=== PATIENT | male | born 1970 | race Two or more races ===

== ENCOUNTER 2023-06-12 14:05 | Emergency (ER) | payer OTHER ==
[2023-06-12 14:26] VITALS: BP 131/80; O2SAT 96
--- NOTE | 2023-06-12 14:45 | ED Physician Documentation ---
PD HPI UPPER EXT INJURY - Stated complaint Stated Complaint: LT HAND INJURY - Chief complaint Chief Complaint: Wound - History obtained from History obtained from: Patient - History of Present Illness Location: Left, Hand Pain level max: 3 Pain level now: 3 Improved by: Rest Worsened by: Moving Associated symptoms: No: Weakness, Numbness, Tingling, Swelling, Discolored - Additonal information Additional information: 52-year-old male presents to the emergency department with a dog bite from a chihuahua to the webspace between the left second and third digits. Unknown last tetanus shot. Nothing makes it better or worse. Review of Systems Constitutional: denies: Fever, Chills GI: denies: Vomiting, Diarrhea Skin: denies: Rash Musculoskeletal: denies: Neck pain, Back pain Neurologic: denies: Headache PD PAST MEDICAL HISTORY - Past Medical History Past Medical History: No - Past Surgical History Past Surgical History: Yes General: Cholecystectomy - Present Medications Home Medications: Ambulatory Orders Medication Instructions Recorded Confirmed Amox/Clav 875/125 [Augmentin] 1 tab PO Q12H #14 tablet 06/12/23 - Allergies Allergies/Adverse Reactions: Allergies Allergy/AdvReac Type Severity Reaction Status Date / Time No Known Drug Allergies Allergy Verified 06/12/23 14:25 - Social History Does the pt smoke?: No Smoking Status: Never smoker - Immunizations Immunizations: TDAP >10years/unknown PD ED PE NORMAL - Vitals Vital signs reviewed: Yes - General General: Alert and oriented X 3, No acute distress - HEENT HEENT: Moist mucous membranes - Neck Neck: Supple, no meningeal sign - Cardiac Cardiac: RRR - Respiratory Respiratory: No respiratory distress, Clear bilaterally - Derm Derm: Warm and dry - Extremities Extremities: Other (L hand - Superficial laceration to the webspace of the left hand in between the second and third digits. Not bleeding. Not deep. Not gaping. NVI) - Neuro Neuro: Alert and oriented X 3 Results - Vitals Vitals: Vital Signs - 24 hr 06/12/23 14:22 Temperature 36.3 C L Heart Rate 96 Respiratory 18 Rate Blood Pressure 131/80 H O2 Saturation 96 PD Medical Decision Making - ED course Complexity details: considered differential, d/w patient ED course: Patient with a dog bite to the left hand. No indication for repair of the superficial laceration. We will place on antibiotics for home. Tdap given. Warnings of infection and instructions on wound care given at bedside. Patient counseled regarding signs and symptoms for which I believe and urgent re- evaluation would be necessary. Patient with good understanding of and agreement to plan and is comfortable going home at this time This document was made in part using voice recognition software. While efforts are made to proofread this document, sound alike and grammatical errors may occur. Departure - Departure Disposition: 01 Home, Self Care Clinical Impression: Dog bite Qualifiers: Encounter type: initial encounter Qualified Code(s): W54.0XXA - Bitten by dog, initial encounter Condition: Good Instructions: ED Bite Animal General Follow-Up: your,doctor as needed [Other] Prescriptions: Amox/Clav 875/125 [Augmentin] 1 tab PO Q12H #14 tablet Comments: Your prescription was sent to [facility] in [place]. Please follow-up with your doctor for further care. Take all antibiotics until gone. You can wash the wound with soap and water daily. Please return if you worsen. Return especially for redness, swelling or drainage from the wound. Forms: PCP List Discharge Date/Time: 06/12/23 15:03
[2023-06-12] MEDS: TETANUS/DIPHTHERIA/PERTUSSIS 0.5 ML SYRINGE IM ONE (14:48)
[2023-06-12] MEDS: AMOX/CLAV 875 MG/125 MG TABLET PO STA (14:49)
== END 2023-06-12 15:03 | disposition home or self-care (01) ==
LOC: ED 14:05
DX: S61.452A Open bite of left hand, initial encounter (principal); W54.0XXA Bitten by dog, initial encounter; Z23 Encounter for immunization
CPT/HCPCS: 90471; 90715; 99283; A9270